=== PATIENT | male | born 1955 | race Caucasian/White ===

== ENCOUNTER 2021-11-26 00:07 | Emergency (ER) | payer BC, SELFPAY ==
[2021-11-26 00:18] VITALS: PULSE 72; O2SAT 99
--- NOTE | 2021-11-26 00:24 | ECG_ITS ---
Measurements Intervals [place] Rate: 62 P: 28 CA: 145 QRS: -6 QRSD: 87 T: 60 QT: 388 QTc: 397 Interpretive Statements SINUS RHYTHM BASELINE ARTIFACT- III, AVF NORMAL ECG NO PREVIOUS ECG AVAILABLE FOR COMPARISON Electronically Signed On 11-26-2021 7:03:01 CDT by Richie Argueta D.O.
[2021-11-26 00:38] LABS: Basophils Absolute Auto 0.1 K/mm3 (0.0-0.1); Basophils Percent Auto 1.1 % (0.2-1.2); Eosinophils Absolute Auto 0.3 K/mm3 (0-0.3); Eosinophils Percent Auto 4.2 % (0-4.4); Hematocrit 45.7 % (42.0-52.0); Hemoglobin 15.8 g/dL (14.0-18.0); Immature Granulocyte Absolute 0.01 K/mm3 (0.00-0.031); Immature Granulocyte Percent A 0.2 % (0-0.5); Lymphocytes Absolute Auto 2.52 K/mm3 (0.9-3.2); Lymphocytes Percent Auto 38.2 % (18.3-44.2); Mean Corpuscular HGB Conc 34.6 g/dl (32-36); Mean Corpuscular Volume 92.7 fl (80-100); Mean Platelet Volume 10.3 fl (7.4-10.4); Monocytes Absolute Auto 0.6 K/mm3 (0.1-0.6); Monocytes Percent Auto 8.3 % (2.6-8.5); Neutrophils Absolute Auto 3.2 K/mm3 (1.3-6.7); Platelet Count Result 208 k/mm3 (150-375); Red Blood Count 4.93 M/mm3 (4.6-6.20); Red Cell Distribution Width 13.3 % (11.5-14.5); White Blood Count 6.6 K/mm3 (4.5-10.0)
[2021-11-26 00:46] LABS: Partial Thromboplastin Time 25.3 SECONDS (22.3-36.8); Prothrombin Time 12.7 Seconds (11.1-14.7)
[2021-11-26 00:54] LABS: Alanine Aminotransferase 33 U/L (6-50); Albumin Level 4.4 g/dL (3.5-5.1); Alkaline Phosphatase 52 U/L (38-126); Anion Gap 14 mmol/L (8-16); Aspartate Amino Transferase 39 U/L (17-59); Bilirubin,Total 0.8 mg/dL (0.2-1.3); Blood Urea Nitrogen 14 mg/dL (9-20); Calcium 8.6 mg/dL (8.4-10.2); Carbon Dioxide 24 mmol/L (22-30); Chloride 103 mmol/L (98-107); Estimated CRCL calculation 96 ml/min; Estimated Glomerular Filt Rate > 60; Glucose 137 mg/dL (65-110); Lipase 218 U/L (23-300); Potassium 3.9 mmol/L (3.4-5.0); Sodium 141 mmol/L (137-145)
[2021-11-26 01:02] LABS: Troponin I < 0.012 ng/mL (0.000-0.034)
--- NOTE | 2021-11-26 01:05 | ED.GENADULT ---
HPI - General Adult General Chief complaint: Chest Pain Stated complaint: chest pain that began this evening Time Seen by Provider: 11/26/21 00:19 History of Present Illness HPI narrative: 66-year-old male presented emergency department for evaluation of reproducible left-sided chest wall pain. Patient states 2 days ago he was leaning over the rail of a boat and potentially injured his chest wall. Patient states earlier today he was helping a friend with a porch and was doing some heavier than average lifting. Patient states his evening at about 5:00 he started noticing the reproducible left-sided chest pain. Patient does have a history of coronary artery disease. Patient states about 5 years ago he had an Angiocath and was found to have age-appropriate levels of calcifications/blockages. Related Data Allergies Allergy/AdvReac Type Severity Reaction Status Date / Time No Known Allergies Allergy Verified 11/26/21 00:08 Review of Systems Review of Systems: CONSTITUTIONAL: Denies fever, chills, or sweats. EYES: Denies visual changes, redness, or discharge. ENT: Denies rhinorrhea, congestion, sore throat, or otalgia. CARDIOVASCULAR: Left-sided chest wall pain reproducible to palpation RESPIRATORY: Denies cough or dyspnea. GASTROINTESTINAL: Denies abdominal pain, nausea, vomiting, or diarrhea. GENITOURINARY: Denies dysuria or hematuria. SKIN: Denies rash or itching. MUSCULOSKELETAL: Denies back pain, joint pain, or myalgia. NEUROLOGIC: Denies headache, numbness, or weakness. Exam Narrative: APPEARANCE: Well appearing, no pain, no distress, well-nourished. HEAD: normocephalic, atraumatic. EYES: PERRLA/EOMI, conjunctivae clear. NOSE: Normal no drainage THROAT: Pharynx clear, no exudate. NECK: Supple. No adenopathy, no masses. RESPIRATORY: Airway patent, respirations nonlabored. Clear to auscultation bilaterally, no rales, rhonchi, wheezing. CARDIOVASCULAR: Chest wall tenderness. ABDOMINAL: Soft, nontender, nondistended, normal bowel sounds MUSCULOSKELETAL: Moves all extremities. Strength/ROM intact, No edema, No calf tenderness. NEURO: Alert. Cranial nerves II through XII intact. Good gait. Good coordination SKIN: Warm, dry. Normal Color PSYCHIATRIC: Normal affect/mood. Course Course Emergency Course: Patient declined the chest x-ray. EKG showed normal sinus rhythm. Patient had negative serial troponins. Vital Signs Vital signs: Vital Signs Pulse Rate 72 11/26/21 00:18 Pulse Oximetry 99 11/26/21 00:18 Oxygen Delivery Room Air 11/26/21 00:18 Pulse Rate 60 11/26/21 03:59 Respiratory Rate 16 11/26/21 03:59 Blood Pressure 170/75 H 11/26/21 03:59 Pulse Oximetry 100 11/26/21 03:59 Oxygen Delivery Room Air 11/26/21 00:18 Medical Decision Making Vital Signs Vital Signs: Vital Signs Pulse Rate 72 11/26/21 00:18 Pulse Oximetry 99 11/26/21 00:18 Oxygen Delivery Room Air 11/26/21 00:18 Pulse Rate 60 11/26/21 03:59 Respiratory Rate 16 11/26/21 03:59 Blood Pressure 170/75 H 11/26/21 03:59 Pulse Oximetry 100 11/26/21 03:59 Oxygen Delivery Room Air 11/26/21 00:18 Lab Data Result diagrams: 11/26/21 00:26 11/26/21 00:26 Labs: Lab Results 11/26/21 11/26/21 11/26/21 Range/Units 00:26 00:26 00:26 WBC 6.6 (4.5-10.0) K/mm3 RBC 4.93 (4.6-6.20) M/mm3 Hgb 15.8 (14.0-18.0) g/dL Hct 45.7 (42.0-52.0) % MCV 92.7 (80-100) fl MCH 32.0 (26-34) pg MCHC 34.6 (32-36) g/dl RDW 13.3 (11.5-14.5) % Plt Count 208 (150-375) k/mm3 MPV 10.3 (7.4-10.4) fl Immature Gran % (Auto) 0.2 (0-0.5) % Neut % (Auto) 48.0 (45.5-73.1) % Lymph % (Auto) 38.2 (18.3-44.2) % [place] % (Auto) 8.3 (2.6-8.5) % Eos % (Auto) 4.2 (0-4.4) % Baso % (Auto) 1.1 (0.2-1.2) % Lymph # (Auto) 2.52 (0.9-3.2) K/mm3 [place] # (Auto) 0.6 (0.1-0.6) K/mm3 Eos # (Auto) 0.3 (0-0.3) K/mm3 Bas
[2021-11-26 03:38] LABS: Troponin I < 0.012 ng/mL (0.000-0.034)
[2021-11-26 03:59] VITALS: BP 170/75; PULSE 60; RESP 16; O2SAT 100
== END 2021-11-26 04:01 | disposition home or self-care (01) ==
PROVIDERS: Emergency Provider Emergency Medicine; PCP Internal Medicine
DX: R07.89 Other chest pain (principal)
CPT/HCPCS: 36415; 80053; 83690; 84484; 85025; 85610; 85730; 93005; 99284